=== PATIENT | female | born 1965 | race Caucasian/White ===

== ENCOUNTER 2019-05-22 20:20 | Emergency (ER) | payer OTHER ==
[~2019-05-22] VITALS: Ht 175.3 cm; Wt 82.1 kg
[~2019-05-22 20:20] MED LIST: AMOXICILLIN875 MG PO; BYSTOLIC 5 MG5 M1 PO; CELEBREX; LOMOTIL TABLET1 EACH PO; ULTRAM 50MG TAB50 MG PO; ZOFRAN ODT4 MG PO
[2019-05-22] MEDS ORDERED: TOPROL XL25 MG PO (20:29)
[2019-05-22 21:34] LABS: URINE CLARITY CLEAR; URINE COLOR ORANGE
[2019-05-22 21:40] LABS: BACTERIA-REFLEX 1-9 Few /HPF (None Seen); CASTS None Seen /LPF (None Seen); CRYSTALS None Seen /LPF (None Seen); MUCUS 0-3 Light strn/LPF (None Seen); SQUAMOUS 0-3 Few /LPF (0-3); URINE RBC 0-2 Rare /HPF (0-2); URINE WBC-REFLEX 0-5 Rare /HPF (0-5)
[2019-05-22 21:45] LABS: ABSOLUTE BASOPHILS 0.1 thou/uL (0.0-0.2); ABSOLUTE EOSINOPHILS 0.3 thou/uL (0.0-0.7); ABSOLUTE LYMPHOCYTES 1.7 thou/uL (0.8-5.3); ABSOLUTE MONOCYTES 1.2 thou/uL (0.0-1.2); ABSOLUTE NEUTROPHILS 7.8 thou/uL (1.6-8.1); HEMATOCRIT 44.9 % (37.0-47.0); HEMOGLOBIN 15.1 gm/dL (12.0-15.0); LYMPHOCYTES 15.3 %; MCH 28.4 pg (26.0-34.0); MCHC 33.6 g/dL (28.0-37.0); MCV 84.6 fL (80.0-100.0); MONOCYTES 10.5 %; MPV 9.2 fl. (7.2-11.1); NUCLEATED RBCS 0 /100WBC; PLATELET COUNT* 192 thou/uL (150-400); POLYS 70.2 %; RBC 5.31 mil/uL (4.20-5.00); RDW-CV 13.4 % (10.5-14.5)
[2019-05-22 21:56] LABS: CALCIUM 8.9 mg/dL (8.5-10.1); CREATININE 0.9 mg/dL (0.6-1.3); POTASSIUM 3.6 mmol/L (3.5-5.1)
[2019-05-22 22:01] LABS: ALBUMIN 3.6 g/dL (3.4-5.0); TOTAL BILIRUBIN 0.3 mg/dL (<0.1-1.0); TOTAL PROTEIN 7.6 g/dL (6.4-8.2)
[2019-05-22] MEDS ORDERED: KEFLEX500 M1 PO (23:06)
[2019-05-22] MEDS ORDERED: OXYCODONE HCL 55 MG PO (23:06)
[2019-05-22] MEDS ORDERED: ZOFRAN ODT4 MG PO (23:06)
[2019-05-22 23:22] VITALS: BP 145/70
== END 2019-05-22 23:22 | disposition home or self-care (01) ==
LOC: M.ERS 20:20
PROVIDERS: Personal Emergency Response Attendant
DX: N39.0 Urinary tract infection, site not specified (principal); I10 Essential (primary) hypertension; M19.90 Unspecified osteoarthritis, unspecified site; F17.210 Nicotine dependence, cigarettes, uncomplicated; Z88.2 Allergy status to sulfonamides; Z90.89 Acquired absence of other organs